=== PATIENT | female | born 1995 | race African-American/Black ===

== ENCOUNTER 2016-11-20 21:00 | Emergency (ER) | payer OTHER ==
--- NOTE | 2016-11-20 22:06 | PD ---
HPI Chief Complaint Lower abdominal pain/cramping Date Seen: Nov 20, 2016 Time Seen: 21:50 Travel History International Travel<30 Days: No Contact w/Intl Traveler<30Days: No Known Affected Area: No History of Present Illness HPI 21-year-old 1 at 21-5/7 weeks' gestation who reports today with vague lower abdominal pain and possible cramping sensation. She denies any leakage of fluid, vaginal discharge or bleeding. She denies any hematuria or frequency but has had minimal dysuria. She is recently relocated here from [facility] where she had been seen for one visit. They have been unsuccessful in efforts to establish care here. Her main concern really is the inability to establish care with any local providers. Para: 0 : 1 Last Menstrual Period: Nov 20, 2016 History Past Medical History Medical History: Denies Significant Hx Obstetric History Obstetric History Single visit She reports an abnormal Pap smear as part of her course. Past Surgical History Surgical History: No Previous Surgery Family History Family History: Negative Social History Alcohol Use: No Tobacco Use: No Substance Abuse: No Review of Systems Except as stated in HPI: all other systems reviewed are Neg Physical Exam Narrative GENERAL: Well-nourished, well-developed patient. SKIN: Warm and dry. HEAD: Normocephalic and atraumatic. EYES: No scleral icterus. No injection or drainage. ENT: No nasal drainage noted. Mucous membranes pink. Airway patent. NECK: Supple, trachea midline. No JVD. CARDIOVASCULAR: Regular rate and rhythm without murmurs, gallops, or rubs. RESPIRATORY: Breath sounds equal bilaterally. No accessory muscle use. ABDOMEN/GI: Abdomen soft, non-tender, bowel sounds present, no rebound, no guarding Gravid to [-] weeks size Fundal Height: [-Umbilicus] GENITOURINARY: External Genitalia: intact and normal in appearance BUS glands: [-] Cervix: [-] Dilatation: [-] Effacement: [-] Station: [-] Presentation: [-] Membranes: [intact or ruptured] Uterine Contractions: [-] FHT's: Category: [-] Baseline: [-] Reactive: [-] Variability: [-] Decels: [-] EXTREMITIES: No cyanosis or edema. BACK: Nontender without obvious deformity. No CVA tenderness. NEUROLOGICAL: Awake and alert. Motor and sensory grossly within normal limits. Five out of 5 muscle strength in all muscle groups. Normal speech. Data Data Vital Signs Reviewed: Yes MDM Medical Record Reviewed: No Narrative Course / MDM 21+ week intrauterine with lower abdominal pain and minimal dysuria Plan: Urinalysis was negative. We discussed further strategies for establishing care. Diagnosis Diagnosis: Primary Impression: 21 weeks gestation of Additional Impression: Abdominal pain affecting Disposition: 01 DISCHARGE HOME Condition: Good Braulio Pruitt MD Nov 20, 2016 22:06
[2016-11-20 22:30] LABS: BLOOD, URINE NEG (NEG); COMMENT (UR) CULT NOT INDICATED; CULTURE IF INDICATED CULT NOT INDICATED; GLUCOSE,URINE NEG (NEG); KETONE, URINE TRACE mg/dL (NEG); MUCUS URINE FEW /lpf (OCC); NITRITE,URINE NEG (NEG); PH, URINE 6.5 (5.0-8.5); SQUAMOUS EPITHELIAL CELL URINE 1 /hpf (0-5); URINE COLOR YELLOW (YELLW/STRAW)
[2016-11-30] MEDS ORDERED: PREN1CAP7 PO (14:28)
== END 2016-11-20 23:30 | disposition home or self-care (01) ==
LOC: HOBED 21:00
DX: O26.892 Other specified pregnancy related conditions, second trimester (principal); R10.30 Lower abdominal pain, unspecified; R30.0 Dysuria; Z3A.21 21 weeks gestation of pregnancy
CPT/HCPCS: 81001; 99284